=== PATIENT | male | born 1990 | race Caucasian/White ===

== ENCOUNTER 2017-02-15 21:15 | Emergency (ER) | payer BC ==
[2017-02-15 21:24] VITALS: BP 159/81; PULSE 62; RESP 20; TEMP 97.8; O2SAT 99
[2017-02-15] MEDS ORDERED: IBUPROFEN 600 MG TAB PO ONE (22:15)
--- NOTE | 2017-02-15 22:41 | RADRPT ---
EXAM DATE/TIME: 02/15/2017 22:15 [place] COMPARISON: No previous studies available for comparison. INDICATIONS : Mid back pain and tightness for one month. Numbness today radiating down both legs. MEDICAL HISTORY : None. SURGICAL HISTORY : None. ENCOUNTER: Initial ACUITY: 1 month PAIN SCORE: 4/10 LOCATION: Mid back FINDINGS: There is normal alignment of the thoracic vertebral bodies in lateral projection. There is a minimal curvature of the thoracic spine convex towards the left. Vertebral body height is maintained. No e vidence of fracture or subluxation. Pedicles are intact at all levels. The paravertebral reflection s are not thickened. CONCLUSION: No evidence of compression deformity or spondylolisthesis. Chris Cartagena MD on February 15, 2017 at 22:34 Board Certified Radiologist. This report was verified electronically.
[2017-02-15] MEDS ORDERED: DIAZ2 PO (22:53)
[2017-02-15] MEDS ORDERED: IBUP-232 PO (22:53)
--- NOTE | 2017-02-15 22:54 | PD ---
HPI Chief Complaint: Back/ Neck Pain or Injury Time Seen by Provider: 21:50 Travel History International Travel<30 days: No Contact w/Intl Traveler<30days: No Traveled to known affect area: No History of Present Illness HPI Patient is a 26-year-old male who about 2 weeks ago was doing back exercises that led him to having a strain and then eventually became numb in his mid thoracic right side. Patient has no trauma he stopped using that back exercise machine after his muscles were heard but from time to time he will feel numbness in that area. He has taken Motrin 400mg from time to time without much relief. His only past surgical history is eye surgery. Main complaint is numbness localized to the right mid thoracic back not relieved by Motrin. He is not seen another doctor for this. [facility] Past Medical History Medical History: Denies Significant Hx Diminished Hearing: No Immunizations Current: Yes Tetanus Vaccination: < 5 Years Influenza Vaccination: Yes Past Surgical History Eye Surgery: Yes Social History Alcohol Use: Yes (rare) Tobacco Use: No Substance Use: No Allergies-Medications (Allergen,Severity, Reaction): Coded Allergies: No Known Allergies (Unverified , 02/15/17) Reported Meds & Prescriptions Reported Meds & Active Scripts Active Valium (Diazepam) 2 Mg Tab 2 Mg PO BID PRN Ibuprofen 600 Mg Tab 600 Mg PO Q6H PRN Review of Systems Except as stated in HPI: all other systems reviewed are Neg Musculoskeletal: Positive: Myalgias (right thorax area tenderness) Physical Exam Narrative GENERAL: non toxic apperaing in no distress SKIN: Warm and dry. HEAD: Atraumatic. Normocephalic. EYES: Pupils equal and round. No scleral icterus. No injection or drainage. ENT: No nasal bleeding or discharge. Mucous membranes pink and moist. NECK: Trachea midline. No JVD. CARDIOVASCULAR: Regular rate and rhythm. RESPIRATORY: No accessory muscle use. Clear to auscultation. Breath sounds equal bilaterally. GASTROINTESTINAL: Abdomen soft, non-tender, nondistended. Hepatic and splenic margins not palpable. MUSCULOSKELETAL: BACK no henmatoma no numbness but mild tenderness in mid right thoracic paraspinal area no spinous process tenderness ,,, Extremities without clubbing, cyanosis, or edema. No obvious deformities. NEUROLOGICAL: Awake and alert. No obvious cranial nerve deficits. Motor grossly within normal limits. Five out of 5 muscle strength in the arms and legs. Normal speech. PSYCHIATRIC: Appropriate mood and affect; insight and judgment normal. Data Data Last Documented VS Vital Signs Date Time Temp Pulse Resp B/P (MAP) Pulse Ox O2 Delivery O2 Flow Rate FiO2 02/15/17 21:24 97.8 62 20 159/81 (107) 99 Orders Orders Ibuprofen (Motrin) (02/15/17 22:15) Spine, Thoracic-Ap/Lat/Sw(3vw) (02/15/17 ) Ed Discharge Order (02/15/17 22:57) MDM Medical Decision Making Medical Screen Exam Complete: Yes Emergency Medical Condition: Yes Differential Diagnosis muscle strain vs occult pathologic fracture vs disc disease vs compression fracture other include tumor of spinal cord Narrative Course xrays show mild scoliosis and no bone pathology motrin and valium PO and close floow up told MRI indicated if it goes on for more than a month to look at cord and discs Diagnosis Primary Impression: Strain of muscle and tendon of back wall of thorax, initial encounter Scripts Diazepam (Valium) 2 Mg Tab 2 MG PO BID Y for MUSCLE SPASM, #12 TAB 0 Refills Prov: Jamison Trejo MD 02/15/17 Ibuprofen (Ibuprofen) 600 Mg Tab 600 MG PO Q6H Y for Pain/Inflammation, #20 TAB 3 Refills Prov: Jamison Trejo MD 02/15/17 Disposition: 01 DISCHARGE HOME Condition: Good Jamison Trejo MD Feb 15, 2017 22:54
[2017-02-15 23:02] VITALS: BP 142/74; PULSE 75; RESP 18; TEMP 98.2; O2SAT 98
== END 2017-02-15 23:04 | disposition home or self-care (01) ==
LOC: PHED 21:15
DX: S29.012A Strain of muscle and tendon of back wall of thorax, initial encounter (principal); X50.0XXA Overexertion from strenuous movement or load, initial encounter; Y93.B1 Activity, exercise machines primarily for muscle strengthening
CPT/HCPCS: 72072; 99283